=== PATIENT | male | born 1985 | race Caucasian/White ===

== ENCOUNTER 2022-06-16 15:44 | Emergency (ER) | payer OTHER ==
[~2022-06-16] VITALS: Ht 170.2 cm; Wt 99.8 kg
== END 2022-06-16 18:03 | disposition home or self-care (01) ==
LOC: ER 15:44
DX: U07.1 COVID-19 (principal); J45.909 Unspecified asthma, uncomplicated

== ENCOUNTER 2023-04-06 19:25 | Emergency (ER) | payer OTHER ==
[~2023-04-06] VITALS: Ht 167.6 cm; Wt 77.1 kg
== END 2023-04-06 22:38 | disposition home or self-care (01) ==
LOC: ER 19:25
PROVIDERS: General Practice
DX: J10.1 Influenza due to other identified influenza virus with other respiratory manifestations (principal); R05.9 Cough, unspecified; Z20.822 Contact with and (suspected) exposure to COVID-19